=== PATIENT | female | born 1965 | race Caucasian/White ===

== ENCOUNTER 2018-08-28 13:16 | Outpatient (CLI) | payer OTHER ==
--- NOTE | 2018-08-28 16:35 | ULT ---
PELVIC ULTRASOUND: History: Post-menopausal bleeding. Comparison: 01-09-13 CT. FINDINGS: Real-time imaging of the pelvis was obtained both transabdominally as well as with an endovaginal pro be. This shows the uterus to measure 4.5 x 5.5 x 8 cm. Endometrium is in the 5 mm range. In the region of the expected location of right ovary is a large cyst measuring approximately 4.8 cm in size. There is a small follicle involving the left adnexa. DOPPLER EVALUATION WITH SPECTRAL ANALYSIS: Normal flow is shown to the left ovary. No definite right ovarian tissue could be identified. IMPRESSION: 1. Large right adnexal cyst. 2. Endometrium does not appear thickened. It measures in the 5 mm range. No uterine fibroids are iden tified. POS: [facility]
== END 2018-08-28 13:17 | disposition home or self-care (01) ==
LOC: MADRAD 13:16
PROVIDERS: ATTEND Family Medicine
DX: N95.0 Postmenopausal bleeding (principal); N83.8 Other noninflammatory disorders of ovary, fallopian tube and broad ligament
CPT/HCPCS: 76856

== ENCOUNTER 2024-02-12 18:27 | Emergency (ER) | payer SELFPAY ==
[2024-02-12] MEDS ORDERED: diphenhydrAMINE 50 MG/ML VIAL ONE (18:41)
[2024-02-12] MEDS ORDERED: Famotidine/PF 20 mg/2ml Vial ONE (18:42)
[2024-02-12] MEDS ORDERED: methylPREDNISolone Sod Succ/PF 125 MG/2 ML VIAL ONE (18:42)
[2024-02-12] MEDS ORDERED: Ondansetron PF 4 MG/2 ML Vial ONE (18:47)
[2024-02-12] MEDS ORDERED: Sodium Chloride 0.9% 1,000 ML ONE (18:47)
== END 2024-02-12 21:19 | disposition home or self-care (01) ==
LOC: MADERS 18:27
DX: T63.441A Toxic effect of venom of bees, accidental (unintentional), initial encounter (principal); I10 Essential (primary) hypertension
CPT/HCPCS: 96374; 96375; J1200; J2405; J2919; J3490; J7030